=== PATIENT | female | born 1980 | race Caucasian/White ===

== ENCOUNTER → 2017-01-03 | Outpatient (CLI) | payer OTHER ==
[~2017-01-03] MED LIST: ALPR0.5T6 PO; NAPR500T3 PO; OMEP1PAC7 PO; SERT25TA4 PO
--- NOTE | 2017-01-03 15:00 | KCIC ---
PROCEDURE Chest, two views. HISTORY Productive cough. Fever. FINDINGS Frontal and lateral views of the chest are obtained. There is no infiltrate, effusion or pneumothorax. The heart is normal in size. IMPRESSION No acute pulmonary finding. Electronically signed by: Sadia Pham (Jan 03, 2017 14:58:55)
== END | disposition home or self-care (01) ==
LOC: KCIC 14:25
PROVIDERS: ATTEND Family Medicine
DX: R05 Cough (principal); R50.9 Fever, unspecified; R52 Pain, unspecified; R53.83 Other fatigue; R07.89 Other chest pain
CPT/HCPCS: 71020

== ENCOUNTER → 2018-08-10 | Outpatient (CLI) | payer OTHER ==
[~2018-08-10] MED LIST changes: +NAPR-514 PO; -NAPR500T3 PO
--- NOTE | 2018-08-10 17:09 | KCIC ---
LUMBAR SPINE MIN 4V History: Low back pain, bilateral hip pain Comparison: None. Findings: 5 views lumbar spine are submitted. There is mild lumbar levoscoliosis. Lumbar vertebral body stature and AP alignment are within normal limits. Intervertebral disc spaces are overall preserved. Impression: 1. Other than mild lumbar levoscoliosis, no significant abnormality is identified by radiographs. Electronically signed by: Luigi Bermudez MD (08/10/2018 5:05 PM) [id number]
--- NOTE | 2018-08-10 17:18 | KCIC ---
EXAM: AP internal and external rotation views of the left shoulder and scapular Y view of the left shoulder DATE: 08/10/2018 12:00 AM INDICATION: Left anterior shoulder pain COMPARISON: No Prior FINDINGS: No evidence of acute fracture or dislocation. Joint spaces are preserved without significant degenerative/proliferative change. Humeral head is not high riding. AC joint is congruent. IMPRESSION: No evidence of acute fracture or dislocation. Electronically signed by: Slava Gallo MD (08/10/2018 5:15 PM) [id number]
--- NOTE | 2018-08-10 17:19 | KCIC ---
AP pelvis with bilateral hip radiographs HISTORY: Low back pain, bilateral hip pain, worsening pain COMPARISON: None FINDINGS: AP view of the pelvis and 2 additional views of the bilateral hips for a total of 5 views are submitted. Femoral head morphology is preserved bilaterally. There is minimal osteophyte formation at the lateral margin of the right superior acetabulum. Joint spaces are overall maintained. No acute fracture or dislocation is identified. Sacroiliac joints are symmetric in appearance. There is likely small phlebolith in the left pelvis. IMPRESSION: 1. No significant osseous abnormality is identified by radiographs. Electronically signed by: Luigi Bermudez MD (08/10/2018 5:16 PM) [id number]
== END | disposition home or self-care (01) ==
LOC: KCIC 14:33
PROVIDERS: ATTEND Physician Assistant Medical
DX: M41.86 Other forms of scoliosis, lumbar region (principal); M25.751 Osteophyte, right hip; M25.512 Pain in left shoulder
CPT/HCPCS: 72110; 73030; 73521